=== PATIENT | female | born 1990 | race African-American/Black ===

== ENCOUNTER 2018-09-30 11:25 | Emergency (ER) | payer OTHER ==
[2018-09-30 11:42] VITALS: BP 112/72; PULSE 98; TEMP 98; BMI 19.2
--- NOTE | 2018-09-30 12:30 | PDOC ---
History of Present Illness - General Chief Complaint: Rash Stated Complaint: ALLERGIC REACTION Time Seen by Provider: 09/30/18 11:49 History Source: Patient Exam Limitations: No Limitations - History of Present Illness Initial Comments: Patient is a 27-year-old female who states that 7 days ago she placed makeup on her face and immediately had a "tingling" sensation and she removed the makeup and then erupted into a pruritic rash which has now spread to her upper extremities and her lower abdomen. Patient denies sharing her make up with anyone else with a rash. Patient denies changes in soaps, lotions, foods or medications. Patient has been attempting Benadryl with minimal success. Patient denies tongue edema. Patient denies any aggravating or relieving factors. 09/30/18 12:24 Past History - Travel Traveled outside of the country in the last 30 days: No Close contact w/someone who was outside of country & ill: No - Past Medical History Allergies/Adverse Reactions: Allergies Allergy/AdvReac Type Severity Reaction Status Date / Time No Known Allergies Allergy Verified 09/30/18 11:38 Home Medications: Ambulatory Orders Prednisone [Deltasone] 20 mg PO DAILY 12 Days #21 tablet 09/30/18 COPD: No - Immunization History Immunization Up to Date: Yes - Suicide/Smoking/Psychosocial Hx Smoking History: Never smoked Hx Alcohol Use: No Drug/Substance Use Hx: No Review of Systems - Review of Systems Able to Perform ROS?: Yes Constitutional: No: Chills, Fever *Physical Exam - Vital Signs Last Vital Signs Temp Pulse Resp BP Pulse Ox 98.0 F 98 H 18 112/72 100 09/30/18 11:40 09/30/18 11:40 09/30/18 11:40 09/30/18 11:40 09/30/18 11:40 - Physical Exam Comments: Constitutional: VS stated, pt appears in no apparent distress; sitting in chair. Skin: Pt has flesh colored papules on the right side of her forehead and UE bilaterally. No signs of secondary infection. Throat: Oropharynx with pink and moist mucosa. Dentition good. No pharyngeal edema; erythema or exudate. Tongue normal, no fasciculations. Airway Patent. Hypoglossal area is soft. Uvula is midline. No trismus. Neck: Supple, non-tender, with full ROM, trachea midline, no anterior/posterior cervical chain lymphadenopathy, thyroid nonpalpable. No stridor or bruits. Lungs: Bilateral breath sounds clear upon auscultation. No adventitious breath sounds. Heart: Regular rate and rhythm, S1/S2 auscultated. No murmurs, rubs, or gallops. No visible pulsations, heaves, or lifts on precordium. Musculoskeletal: Neurologic: Awake, alert. Conversation fluent. MS: Moves all extremities without difficulty. 09/30/18 12:25 *DC/Admit/Observation/Transfer Diagnosis at time of Disposition: Rash - Discharge Dispostion Disposition: HOME Condition at time of disposition: Good - Prescriptions Prescriptions: Prednisone [Deltasone] 20 mg PO DAILY 12 Days #21 tablet - Referrals Referrals: Zay Mejía MD [Staff Physician] - - Patient Instructions Printed Discharge Instructions: DI for Rash Additional Instructions: Take Benadryl as directed. It is sedating. Take Prednisone as directed. F/U with your PCP. - Post Discharge Activity
== END 2018-09-30 12:33 | disposition home or self-care (01) ==
LOC: JERFT 11:25
DX: R21 Rash and other nonspecific skin eruption (principal)
CPT/HCPCS: 99281-25